=== PATIENT | male | born 1945 | race Caucasian/White ===

== ENCOUNTER → 2016-08-22 | Outpatient (CLI) | payer BC ==
[~2016-08-22] MED LIST: B-COTAB18 PO; FINA5TAB PO; LUTE15CA PO; MULT-506 PO; NUTR-218 PO; OMEG10007 PO; TERA5CAP PO; VENL75CA PO
== END | disposition home or self-care (01) ==
LOC: C.LAB 12:10
PROVIDERS: ATTEND Urology
DX: R97.20 Elevated prostate specific antigen [PSA] (principal); N40.1 Benign prostatic hyperplasia with lower urinary tract symptoms; N52.9 Male erectile dysfunction, unspecified

== ENCOUNTER → 2017-04-27 | Outpatient (CLI) | payer BC | END | disposition home or self-care (01) | LOC: C.LAB 16:37 | PROVIDERS: ATTEND Urology | DX: R33.9 Retention of urine, unspecified (principal); R97.20 Elevated prostate specific antigen [PSA]; N40.1 Benign prostatic hyperplasia with lower urinary tract symptoms; E29.1 Testicular hypofunction; N52.9 Male erectile dysfunction, unspecified ==

== ENCOUNTER → 2017-05-25 | Outpatient (CLI) | payer BC ==
[2017-05-25 15:48] LABS: BLOOD UREA NITROGEN 15 mg/dl (7-18); CREATININE 1.27 mg/dl (0.60-1.40)
== END | disposition home or self-care (01) ==
LOC: C.LAB1850 14:38
PROVIDERS: ATTEND Urology
DX: R97.20 Elevated prostate specific antigen [PSA] (principal)

== ENCOUNTER → 2017-06-21 | Outpatient (CLI) | payer BC ==
[~2017-06-21] MED LIST changes: +GADAVIST IV PRN
--- NOTE | 2017-06-21 15:46 | DIAGNOSTIC IMAGING REPORT ---
PROSTATE MRI COMBO CLINICAL HISTORY: 72 years-old Male presenting with elevated serum PSA. COMPARISON STUDY: Pelvic CT dated 11/05/2006. TECHNIQUE: Multisequence, multiplanar MR imaging of the prostate was performed before and after the administration of intravenous contrast. Additional postprocessing was performed on a separate [employer] workstation by the radiologist for 3-D volumetric segmentation of the prostate and contouring of region(s) of interest (CHRIS) for targeting. IV contrast: 7.5 cc of Gadavist. FINDINGS: Prostate: The prostate measures 6.7 cm in transverse diameter (DynaCAD prostate boundary segmentation volume 146 mL). Severe changes of benign prostatic hyperplasia with median lobe hypertrophy. Precontrast T1 weighted imaging demonstrates no evidence of intrinsic T1 hyperintensity to suggest hemorrhage. Suspicious lesion(s) described below: Lesion (DynaCAD CHRIS) 1: Location: Left transition zone at the apex. The lesion does not extend across the midline. Size: 14 mm (as measured on ADC for PZ lesion and T2WI for TZ lesion) T2W: 3: Heterogeneous signal intensity with obscured margins. No evidence of extraprostatic extension, seminal vesicle invasion, or neurovascular bundle involvement. DWI: 3. Focal mildly/moderately hypointense on ADC and isointense/mildly hyperintense on high b-value DWI. DCE: Positive. Focal enhancement corresponding to a suspicious finding, earlier or contemporaneous with adjacent normal tissue. PI-RADS: 3. The presence of clinically significant cancer is equivocal. Lesion (DynaCAD CHRIS) 2: Location: Right transition zone at the apex. The lesion does not extend across the midline. Size: 16 mm (as measured on ADC for PZ lesion and T2WI for TZ lesion) T2W: 3. Heterogeneous signal intensity or noncircumscribed, rounded, moderate hypointensity. No evidence of extraprostatic extension, seminal vesicle invasion, or neurovascular bundle involvement. DWI: 3. Focal mildly/moderately hypointense on ADC and isointense/mildly hyperintense on high b-value DWI. DCE: Positive. Focal enhancement corresponding to a suspicious finding, earlier or contemporaneous with adjacent normal tissue. PI-RADS: 3. The presence of clinically significant cancer is equivocal. Seminal vesicles normal. Bladder: Although decompressed, the bladder wall is thickened and trabeculated consistent with chronic outlet obstruction. Bowel: Visualized portion of the rectum normal. Peritoneum: No free fluid in the pelvis. There is a small fat-containing right inguinal hernia. Lymph nodes: There is no pelvic sidewall or inguinal lymphadenopathy. Vasculature: Iliac vessels patent. Abdominal wall: Normal. Osseous structures: Normal bone marrow signal intensity. IMPRESSION: 1. 14 mm lesion in the left apex. PI-RADS: 3. The presence of clinically significant cancer is equivocal. This lesion has been segmented for targeted biopsy. 2. 16 mm lesion in the right apex. PI-RADS: 3. The presence of clinically significant cancer is equivocal. This lesion has been segmented for targeted biopsy. 3. Severe benign prostatic hyperplasia with evidence of chronic bladder outlet obstruction. Electronically signed by: Eder Kemp M.D. 06/21/2017 3:45 PM Dictated Date/Time: 06/21/2017 3:23 PM
== END | disposition home or self-care (01) ==
LOC: C.MRIBC 13:34
PROVIDERS: ATTEND Urology
DX: R97.20 Elevated prostate specific antigen [PSA] (principal)

== ENCOUNTER → 2017-09-04 | Outpatient (CLI) | payer BC ==
[~2017-09-04] MED LIST changes: -GADAVIST IV PRN
== END | disposition home or self-care (01) ==
LOC: C.LAB 15:01
PROVIDERS: ATTEND Urology
DX: R97.20 Elevated prostate specific antigen [PSA] (principal)